=== PATIENT | female | born 1950 | race Two or more races ===

== ENCOUNTER 2021-08-21 19:52 | Emergency (ER) | payer MEDICARE, OTHER ==
[~2021-08-21] VITALS: Ht 154.9 cm; Wt 68.0 kg
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
--- NOTE | 2021-08-21 21:30 | NUR ---
AT BED SIDE
--- NOTE | 2021-08-21 22:00 | NUR ---
CALLED [phone] AND JIM GARCIA HAT SPRAYER AND WILL CALL BACK
--- NOTE | 2021-08-21 22:25 | NUR ---
SENIOR SHAREPOINT ARCHITECT AT BED SIDE FOR BLOOD WORKS
[2021-08-21 22:49] LABS: BASOPHILS % (AUTO) 0.1 % (0.0-2.0); EOSINOPHILS % (AUTO) 1.5 % (0.0-6.0); HEMATOCRIT 29 % (33-45); HEMOGLOBIN 9.3 g/dL (11.5-14.8); LYMPHOCYTES # (AUTO) 0.2 K/uL (0.8-4.8); LYMPHOCYTES % (AUTO) 13.1 % (20.0-44.0); MEAN CORPUSCULAR HGB CONC 32 g/dl (31.0-36.0); MEAN CORPUSCULAR VOLUME 89 fL (82-100); MONOCYTES # (AUTO) 0.1 K/uL (0.1-1.30); MONOCYTES % (AUTO) 3.7 % (2.0-12.0); NEUTROPHILS # (AUTO) 1.3 K/uL (1.8-8.9); NEUTROPHILS % (AUTO) 81.6 % (43.0-81.0); PLATELET COUNT (AUTO) 150 K/uL (150-450); RED BLOOD CELL COUNT(AUTO) 3.26 MIL/uL (4.0-5.2)
[2021-08-21 22:52] LABS: WHITE BLOOD COUNT (AUTO) 1.6 K/uL (4.3-11.0)
--- NOTE | 2021-08-21 23:00 | NUR ---
DMITRI, SISTER CALLED [phone]
[2021-08-21 23:02] LABS: CALCIUM, SERUM 8.8 mg/dL (8.5-10.1); POTASSIUM 3.7 mmol/L (3.5-5.1)
--- NOTE | 2021-08-21 23:15 | NUR ---
DMITRI SISTER REQUESTS A CALL BACK
[2021-08-21 23:17] LABS: BAND % (MANUAL) 3 % (0.0-5.0); EOSINOPHILS % (MANUAL) 2 % (0-4); LYMPHOCYTES % (MANUAL) 15 % (16-48); MONOCYTES % (MANUAL) 2 % (0-11.0); NEUTROPHILS % (MANUAL) 78 (42-76)
--- NOTE | 2021-08-21 23:58 | NUR ---
[facility] ETA 60-75 MINUTES.
--- NOTE | 2021-08-22 00:50 | NUR ---
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
[2021-08-22 00:51] VITALS: BP 144/81
== END 2021-08-22 01:06 | disposition home or self-care (01) ==
LOC: ER 19:54
DX: Z20.822 Contact with and (suspected) exposure to COVID-19 (principal); R06.02 Shortness of breath; R05.9 Cough, unspecified; I10 Essential (primary) hypertension; F32.A Depression, unspecified; F20.9 Schizophrenia, unspecified; F41.9 Anxiety disorder, unspecified; Z86.69 Personal history of other diseases of the nervous system and sense organs; Z87.19 Personal history of other diseases of the digestive system; Z87.39 Personal history of other diseases of the musculoskeletal system and connective tissue; Z88.0 Allergy status to penicillin
CPT/HCPCS: 36415; 71045-TC; 80048-TC; 85025-TC